=== PATIENT | female | born 1980 | race African-American/Black ===

== ENCOUNTER 2017-06-05 03:53 | Inpatient (IN) | payer OTHER ==
[~2017-06-05] VITALS: Ht 162.6 cm; Wt 127.0 kg
[~2017-06-05 03:53] MED LIST: FLEXERIL 5MG TAB5 MG PO; MOBIC 15MG15 MG PO
--- NOTE | 2017-06-05 15:50 | Operative Report ---
Operative/Inv Procedure Report Surgery Date: 06/05/17 Name of Procedure: Laparoscopic Sleeve Gastrectomy Pre-Operative Diagnosis: Morbid Obesity BMI 48 Post-Operative Diagnosis: Same Estimated Blood Loss: less than 50ml Surgeon/Sandstone Splitter: Delta Rhodes DO Anesthesia: general endotracheal tube IV Fluids: 800 cc Drains: None Specimens: Stomach Complications: None Condition: Stable Operative Indication: This is a 36-year-old female who presented to the office for workup for bariatric surgery. After appropriate workup was completed I discussed with the patient the band, the sleeve, and the gastric bypass. The patient chose to undergo a sleeve gastrectomy. All risks including but not limited to bleeding, infection, leak, stricture, injury to surrounding bowel/esophagus/stomach/liver/ spleen, long-term reflux, DVT/PE, and mortality of 04/999 patients were discussed in detail. The patient understood everything and decided to proceed. Operative/Procedure Note Note: The patient was brought to the operating room and placed on the operating room table in supine position. Venodyne stockings were placed and adequate general endotracheal anesthesia was obtained. The patient was prepped and draped in standard surgical fashion. Began the procedure by making a 2 cm transverse incision supraumbilically and slightly to the left of the midline. Then using a 12 mm clear Visiport and a 10 mm 0 laparoscope, the abdominal cavity was accessed. Great care was taken to go through the anterior rectus sheath, the posterior rectus sheath, and through the peritoneum. Once we entered the peritoneum the abdominal cavity was insufflated to 15 mmHg. Upon initial examination no obvious gross pathology was seen. Accessory trocars were placed, 5 mm in the epigastrium for the John liver retractor. The retractor was inserted and the liver was retracted anteriorly exposing the hiatus, no hiatal hernia was seen. 5 mm ports were placed in the right and left upper quadrant, a 5 mm left lateral port, and a 15 mm right lateral port. Began the procedure by mobilizing the greater curvature of the stomach approximately 7 cm from the pylorus. Once the retrogastric space was reached the whole greater curvature was mobilized maintaining hemostasis using Harmonic scalpel. Full hiatal dissection was performed, no hiatal hernia was seen. Posterior adhesions were taken down using Harmonic scalpel as well. Once the stomach was adequately mobilized a 38 Croatian bougie was inserted and placed along the lesser curvature of the stomach. Once the bougie was in the appropriate position we began creating our sleeve, two 60 mm black staple loads with seamguard followed by two 60 mm purple staple loads with seamguard, and finished with a 45 mm purple load with seamguard as well. Great care was taken to leave ample room at the incisura angularis, to prevent any twisting or kinking of the sleeve, to stay lateral to the esophagogastric fat pad, and to do a full fundal excision. At the completion of the staple line the staple line was examined, it appeared intact, some bleeding was noted and controlled using endoclips. The bougie was removed, the sleeve was lying nicely without any twisting or kinking. The resected stomach was removed through the right lateral port site. The port and the left upper quadrant were irrigated until clear. All ports were removed under direct visualization no obvious bleeding was noted. The 15 mm port site fascia was closed using 0 Vicryl suture. The skin was closed using 4-0 Monocryl. Steri-Strips and dressings were placed. The patient was successfully extubated and transferred to the recovery room in stable condition. The patient tolerated the procedure well with no complications. Findings: No hiatal hernia, 38 Fr bougie CC: Sly OLIVEIRA,Alexis Allen
--- NOTE | 2017-06-05 15:57 | Admission Core Measures ---
Acute Coronary Syndrome (CM) ACS Core Measures Acute Coronary Syndrome Diagnosis No Congestive Heart Failure (NEW) CHF Core Measures Congestive Heart Failure Diagnosis No Cerebrovascular Accident (NEW) CVA Core Measures CVA/TIA Diagnosis No Venous Thromboembolism VTE Core Astrid (View Protocol) VTE Risk Factors Surgery No Mechanical VTE Prophylaxis d/t N/A MechProphylax Ordered No VTE Pharm Prophylaxis d/t NA PharmProphylax ordered Problem List As ranked by this Provider includes Assessment & Plan 1. S/P laparoscopic sleeve gastrectomy 2. Morbid obesity HOME MEDS Home Med List No Known Home Medications
--- NOTE | 2017-06-05 16:00 | Surg Short-stay <48hrs Dis Sum ---
Visit Information Visit Dates Admission Date: 06/05/17 Discharge Date: 06/07/17 Surgical Short Stay DC Summary Admission Diagnosis: Morbid Obesity (BMI 48) Final Diagnosis: SAME ABOVE, S/P Surgery Date: 06/05/17 Name of Procedure: Laparoscopic Sleeve Gastrectomy Procedure(s): Surgery Date: 06/05/17 Name of Procedure: Laparoscopic Sleeve Gastrectomy Summary/Significant Findings: Electively scheduled laparoscopic sleeve gastrectomy on 06/05/17 by for history of morbid obesity (BMI 48). Started on stage 1 bariatric diet post- operatively. Upper gi study negative for leak and obstruction POD#1. Pain medication transitioned from iv to oral medication. Lovenox teaching done prior to discharge to home, for pre-op risk score of 6. Condition at Discharge: stable Discharge Disposition: home or self care Discharge instructions provided to patient/family: Yes Post discharge follow-up plan: one week follow up with Dr.Fridman balaji eppersonin for continued use at home Copies to: Sly OLIVEIRA,Alexis Allen
--- NOTE | 2017-06-05 16:02 | Patient Discharge Instructions ---
Discharge Instructions General Discharge Information You were seen/treated for: Morbid Obesity (BMI 48) You had these procedures: Surgery Date: 06/05/17 Name of Procedure: Laparoscopic Sleeve Gastrectomy Watch for these problems: fever>101.3, increased pain, redness/swelling/drainage, dizziness, shortness of breath, chest pains No bath, but you may shower: Yes Other wound care: ok to remove outer dressings. leave white steri strips in place. keep incisions clean & dry. Diet Continue normal diet: No Recommended Diet: Bariatric Additional DIET Information: weekly bariatric stage diet advancements as tolerated, as directed Activity Full Activity/No Limits: No Activity Self Limited: Yes Pounds, do NOT lift more than: 10 Other activity limits: no heavy lifting. no strenuous activity. walk frequently. Acute Coronary Syndrome Inclusion Criteria At DC or during hospital stay patient has or had the following: ACS DIAGNOSIS No Discharge Core Measures Meds if any: Prescribed or Continued at Discharge Meds if any: NOT Prescribed or Continued at Discharge Congestive Heart Failure Inclusion Criteria At DC or during hospital stay patient has or had the following: CHF DIAGNOSIS No Discharge Core Measures Meds if any: Prescribed or Continued at Discharge Meds if any: NOT Prescribed or Continued at Discharge Cerebrovascular accident Inclusion Criteria At DC or during hospital stay patient has or had the following: CVA/TIA Diagnosis No Discharge Core Measures Meds if any: Prescribed or Continued at Discharge Meds if any: NOT Prescribed or Continued at Discharge Venous thromboembolism Inclusion Criteria VTE Diagnosis No VTE Type NONE VTE Confirmed by (Test) NONE Discharge Core Measures - Per Current guidelines, there needs to be overlap - treatment for the first 5 days of Warfarin therapy. - If discharged on Warfarin prior to 5 days of - overlap therapy, the patient will need to be - assessed for post discharge needs including - *Post discharge parental anticoagulation - *Warfarin and/or parental anticoagulation education - *Follow up date to check INR post discharge At least 5 days overlap therapy as Inpatient No Meds if any: Prescribed or Continued at Discharge Note: Overlap Therapy is Warfarin and Anticoagulant Meds if any: NOT Prescribed or Continued at Discharge
[2017-06-05] MEDS ORDERED: LOVENOX40 MG/0.1 SC (16:04)
[2017-06-05] MEDS ORDERED: PROTONIX40 M3 PO (16:04)
[2017-06-05] MEDS ORDERED: HYCET 7.5 MG-3473 ML PO (16:04)
[2017-06-05 17:51] VITALS: BP 120/70
[2017-06-05 21:56] VITALS: BP 140/76
[2017-06-06 06:00] VITALS: BP 146/100
[2017-06-06 07:23] VITALS: BP 118/84
--- NOTE | 2017-06-06 07:53 | PN- Bariatrics ---
Subjective Subjective: Patient is very drowsy with her eyes closed this morning, She offers no complaints. She denies n/v, however just recieved phenergan, likely contributing to her sedation. Nursing reports pt was c/o nausea despite zofran/decadron earlier this morning. Denies passing flauts. Objective Vital Signs and I&Os Vital Signs Date Time Temp Pulse Resp B/P B/P Pulse O2 O2 Flow FiO2 Mean Ox Delivery Rate 06/06 07 118/84 06/06 06 97 Room Air 06/06 06 98.7 70 20 146/100 97 Room Air 06/06 0000 96 Room Air 06/05 2156 97.7 82 18 140/76 96 06/05 1930 96 Room Air 06/05 1751 98.0 85 18 120/70 94 Room Air 06/05 1751 94 Room Air Intake & Output 06/06 1600 06/06 0800 06/06 0000 06/05 1600 06/05 0800 06/05 0000 Intake Total 1500 800 Output Total 650 600 Balance 850 200 Intake, IV 1500 800 Intake, Oral 0 0 Output, 200 Emesis Output, Urine 450 600 Patient 280 lb Weight Weight Reported by Patient Measurement Method Physical Exam: Gen - nad, lethargic Cardiac - s1s2, rrr Lungs - ctab Abd - soft, obese, [address], faint bowels sounds, appropriately tender, no rebound/guarding noted Ext - no significant edema or calf tenderness, alps in place Current Medications: Current Medications Sig/Mohini Start time Last Medication Dose Route Stop Time Status Admin Acetaminophen 1,000 MG Q6 06/05 1800 AC 06/06 N/A 1 UNIT IV 06/06 1214 0641 Cefazolin Sodium 2,000 MG IQ8 06/05 2200 CAN IV 06/06 0801 Cefazolin Sodium 2 GM Q8H 06/05 2200 DC 06/06 N/A 1 UNIT IV 06/06 0629 0515 Cefazolin Sodium 3,000 MG ONCE 06/05 0000 DC IV 06/05 2359 Dexamethasone 8 MG ONCE PRN 06/05 1815 AC 06/06 IV PUSH 0515 Dexamethasone 4 MG .STK-MED ONE 06/05 1652 DC IM 06/05 1653 Dexamethasone 8 MG .STK-MED ONE 06/05 1357 DC IM 06/05 1358 Dextrose/Lactated 1,000 ML Q8H 06/05 1815 AC 06/06 Ringer's IV 0231 Fentanyl Citrate 250 MCG .STK-MED ONE 06/05 1356 DC IM 06/05 1357 Fentanyl Citrate 100 MCG .STK-MED ONE 06/05 1356 DC IM 06/05 1357 Heparin Sodium 5,000 UNIT Q8 06/05 2200 AC 06/06 (Porcine) SC 0639 Heparin Sodium 5,000 UNIT ONCE 06/05 0000 DC (Porcine) SC 06/05 2359 Hydrocodone Bitart/ 15 ML Q6P PRN 06/05 1815 AC Acetaminophen PO Ketorolac 30 MG Q6-PRN PRN 06/05 2000 AC Tromethamine IV Midazolam HCl 2 MG .STK-MED ONE 06/05 1357 DC IM 06/05 1358 Morphine Sulfate 2 MG Q2-3 HRS NEEDED.. 06/05 1815 AC IV Morphine Sulfate 4 MG .STK-MED ONE 06/05 1621 DC IM 06/05 1622 Morphine Sulfate 4 MG .STK-MED ONE 06/05 1606 DC IM 06/05 1607 Ondansetron HCl 4 MG Q6P PRN 06/05 1815 AC 06/06 IV 0411 Pantoprazole Sodium 40 MG DAILY 06/06 1000 AC 06/06 IV 0828 Promethazine HCl 25 MG ONCE ONE 06/06 0630 DC 06/06 IV 06/06 0631 0640 Simethicone 40 MG Q6P PRN 06/05 1815 AC PO Results Last 48 Hours of Labs: Laboratory Tests 06/05 1105 Urines Urine Test NEGATIVE Assessment/Plan Assessment/Plan 36 F POD 1 s/p lap sleeve with persistent nausea UGI this morning Cont IVF Pain meds prn Antiemetics on board GI ppx on board DVT ppx - hsq/alps/ OOB/ambulate w/ assistance Encourage IS F/U labs, imaging [facility] - Nampanox teaching D/w Dr. Rhodes Core Measures Venous Thromboembolism VTE Risk Factors Surgery No Mechanical VTE Prophylaxis d/t N/A MechProphylax Ordered No VTE Pharm Prophylaxis d/t NA PharmProphylax ordered
--- NOTE | 2017-06-06 10:22 | RADIOLOGY REPORT ---
EXAMINATION: FLUOROSCOPY UPPER GI WITH GASTROGRAFIN WITH KUB CLINICAL INFORMATION: 1 day status post gastric sleeve procedure. Postoperative evaluation. Evaluate for leak or obstruction. COMPARISON: None. TECHNIQUE: A limited Gastrografin upper GI study was performed using 30 ml of Gastroview with the patient in the semiupright position. 7 cine fluoroscopy runs were acquired. FINDINGS: The preliminary aquatic facility manager view of the abdomen demonstrates postsurgical suture line in the epigastric region. Normal bowel gas pattern is seen without abnormal bowel distention noted. Evaluation is limited, as the patient was unable to retain the orally ingested Gastrografin. Most of the Gastrografin was vomited back up. Esophageal distensibility is grossly normal. Is slight hypomotility of the esophagus is seen. The GE junction is located below the level of the diaphragm and no GE reflux seen. The remnant stomach is normal with no abnormal distention or contrast leak seen. There is prompt emptying of contrast into the duodenum, which is unremarkable in appearance. FLUOROSCOPY TIME: 50 seconds. IMPRESSION: Limited exam due to only small volume of contrast tolerated by patient. No evidence of contrast leak or gastric outlet obstruction.
[2017-06-06 10:39] VITALS: BP 120/94
[2017-06-06 11:43] LABS: ABSOLUTE BASOPHIL COUNT 0 /CUMM (0.0-0.2); ABSOLUTE EOSINOPHIL COUNT 0 /CUMM (0.0-0.7); ABSOLUTE GRANULOCYTE CT 12.4 /CUMM (1.4-6.5); ABSOLUTE LYMPH COUNT 0.8 /CUMM (1.2-3.4); ABSOLUTE MONOCYTE COUNT 0.3 /CUMM (0.10-0.60); BASOPHIL % 0.2 % (0.0-2.0); EOSINOPHIL % 0 % (0-5); GRANULOCYTE % 91.8 % (42.2-75.2); HEMATOCRIT 37.1 % (37-47); MEAN CORPUSCULAR HGB CONC 32.8 G/DL (33.0-37.0); MEAN CORPUSCULAR VOLUME 88.3 FL (81.0-99.0); MEAN PLATELET VOLUME 8.8 FL (7.4-10.4); PLATELET COUNT 277 /CUMM (130-400); RBC DISTRIBUTION WIDTH 14.1 % (11.5-14.5)
[2017-06-06 12:07] LABS: WHITE BLOOD CELL COUNT 13.6 /CUMM (4.8-10.8)
[2017-06-06 14:32] VITALS: BP 132/92
[2017-06-06 22:28] VITALS: BP 100/58
[2017-06-07 07:05] VITALS: BP 121/87
[2017-06-07] MEDS ORDERED: HYCET 7.5 MG-3473 ML PO (07:47)
[2017-06-07] MEDS ORDERED: ZOFRAN4 M2 PO (07:47)
[2017-06-07] MEDS ORDERED: PROTONIX40 M3 PO (07:47)
--- NOTE | 2017-06-07 07:53 | PN- Bariatrics ---
Subjective Subjective: Reports some gas pains and some nausea, but tolerating stage 1 diet. Ambulating without difficulty. No dizziness. No shortness of breath. No chest pains. Passing flatus. No bm yet. Voiding well. Anticipates discharge to home today. Wants to review lovenox injections. Objective Vital Signs and I&Os Vital Signs Date Time Temp Pulse Resp B/P B/P Pulse O2 O2 Flow FiO2 Mean Ox Delivery Rate 06/07 704 98.3 70 18 121/87 99 Room Air 06/07 0600 96 Room Air 06/06 2228 97.7 58 18 100/58 93 Room Air 06/06 2200 96 Room Air 06/06 1600 96 Room Air Room Air 06/06 1432 98.6 72 18 132/92 99 Room Air 06/06 1329 Room Air Room Air 06/06 1200 96 Room Air Room Air 06/06 1039 99.2 79 18 120/94 96 Room Air 06/06 0800 96 Room Air Room Air Intake & Output 06/07 0000 06/06 1600 06/06 0800 06/06 0000 06/05 1600 Intake Total 745 174 142 5221 800 Output Total 650 600 Balance 745 745 780 975 200 Intake, IV 625 137 457 8858 800 Intake, Oral 120 120 30 0 0 Output, 200 Emesis Output, Urine 450 600 Patient 280 lb Weight Weight Reported by Patient Measurement Method Physical Exam: General - alert & oriented x 3. comfortable. no acute distress. Lungs - clear bilaterally. no w/r/r. Cardiac - s1s2. reg. Abdomen - soft. dressings stained, but intact. no drains. expected jaquan- incisional tenderness. Extremities - warm bilaterally. no c/c/e. calves soft and nontender b/l. Current Medications: Current Medications Sig/Mohini Start time Last Medication Dose Route Stop Time Status Admin Acetaminophen 1,000 MG Q6 06/05 1800 DC 06/06 N/A 1 UNIT IV 06/06 1214 1228 Bisacodyl 10 MG ONCE PRN 06/07 0745 UNVr NC Dexamethasone 8 MG ONCE PRN 06/05 1815 AC 06/06 IV PUSH 0515 Dextrose/Lactated 1,000 ML Q8H 06/05 181 AC 06/07 Ringer's IV 0326 Enoxaparin Sodium 40 MG DAILY 06/07 1000 UNVr SC Heparin Sodium 5,000 UNIT Q8 06/05 2200 DC 06/07 (Porcine) SC 0602 Hydrocodone Bitart/ 15 ML Q6P PRN 06/05 1814 AC 06/07 Acetaminophen PO 0355 Ketorolac 30 MG Q6-PRN PRN 06/06 1999 AC 06/06 Tromethamine IV 1549 Morphine Sulfate 2 MG Q2-3 HRS NEEDED.. 06/05 181 AC IV Ondansetron HCl 4 MG Q6P PRN 06/05 181 AC 06/07 IV 0321 Pantoprazole Sodium 40 MG DAILY 06/06 1000 AC 06/06 IV 0828 Patient Medication 1 ED ONE ONE 06/06 1430 DC 06/06 Teaching ED 06/06 1431 1551 Simethicone 40 MG Q6P PRN 06/05 181 AC 06/07 PO 0329 Trimethobenzamide HCl 200 MG ONE TIME ONE 06/07 08 UNVr IM 06/07 0801 Results Last 48 Hours of Labs: Laboratory Tests 06/06 06/05 1050 1105 Chemistry Sodium (137 - 145 mmol/L) 143 Potassium (3.5 - 5.1 mmol/L) 4.6 Chloride (98 - 107 mmol/L) 105 Carbon Dioxide (22 - 30 mmol/L) 28 Anion Gap (5 - 16) 11 BUN (7 - 17 mg/dL) 5 L Creatinine (0.5 - 1.0 mg/dL) 0.7 Estimated GFR (>60 ml/min) > 60 BUN/Creatinine Ratio (7 - 25 %) 7.1 Glucose (65 - 99 mg/dL) 139 H Magnesium (1.6 - 2.3 mg/dL) 2.0 Hematology CBC w Diff NO MAN DIFF REQ WBC (4.8 - 10.8 /CUMM) 13.6 H RBC (4.20 - 5.40 /CUMM) 4.20 Hgb (12.0 - 16.0 G/DL) 12.2 Hct (37 - 47 %) 37.1 MCV (81.0 - 99.0 FL) 88.3 MCH (27.0 - 31.0 PG) 29.0 MCHC (33.0 - 37.0 G/DL) 32.8 L RDW (11.5 - 14.5 %) 14.1 Plt Count (130 - 400 /CUMM) 277 MPV (7.4 - 10.4 FL) 8.8 Gran % (42.2 - 75.2 %) 91.8 H Lymphocytes % (20.5 - 51.1 %) 5.6 L Monocytes % (1.7 - 9.3 %) 2.4 Eosinophils % (0 - 5 %) 0 Basophils % (0.0 - 2.0 %) 0.2 Absolute Granulocytes (1.4 - 6.5 /CUMM) 12.4 H Absolute Lymphocytes (1.2 - 3.4 /CUMM) 0.8 L Absolute Monocytes (0.10 - 0.60 /CUMM) 0.3 Absolute Eosinophils (0.0 - 0.7 /CUMM) 0 Absolute Basophils (0.0 - 0.2 /CUMM) 0 Urines Urine Test NEGATIVE Assessment/Plan Assessment/Plan This 36 year old female with hx morbid obesity (BMI 48) is POD#1 s/p laparoscopic sleeve gastrectomy tolerating stage 1 diet pain controlled lovenox teaching to be reviewed prior to discharge home today protonix - gi ppx hep sc changed to lovenox - dvt ppx zofran prn nausea oob/ambulation encouraged d/c home will d/w Core Measures Venous Thromboembolism VTE Risk Factors Surgery No Mechanical VTE Prophylaxis d/t N/A MechProphylax Ordered No VTE Pharm Prophylaxis d/t NA PharmProphylax ordered
== END 2017-06-07 13:15 | DRG 403 ==
LOC: 2NB 03:53 → SDA 03:53 → ENRESERV 16:59 → CANRESERV 16:59 → ENRESERV 17:21 → ENTRNSPT 17:35 → EDTRNSPTSTS 17:58 → EDTRNSPT 17:58 → CMPTRNSPT 18:02 → 2NB 18:02 → ENPENDDIS 06-07 09:55 → 2NB 06-07 13:15
PROVIDERS: Physician Assistant
PROC: 0DB64Z3 Excision of Stomach, Percutaneous Endoscopic Approach, Vertical (ICD-10-PCS; principal; 2017-06-05)
DX: E66.01 Morbid (severe) obesity due to excess calories (principal); Z68.42 Body mass index [BMI] 45.0-49.9, adult; I10 Essential (primary) hypertension; Z82.49 Family history of ischemic heart disease and other diseases of the circulatory system; Z83.3 Family history of diabetes mellitus; D50.9 Iron deficiency anemia, unspecified
CPT/HCPCS: 2NBSP; 36592; 74240; 81025; 82436; C9399; J0131; J0690; J1100; J1644; J1650; J1885; J2405; J2550